=== PATIENT | female | born 1965 | race Caucasian/White ===

== ENCOUNTER 2022-08-14 13:53 | Emergency (ER) | payer OTHER ==
[~2022-08-14] VITALS: Ht 157.5 cm; Wt 57.6 kg
[~2022-08-14 13:53] MED LIST: TRAMADOL HCL-AP1 TAB PO
[2022-08-14] MEDS ORDERED: VERAPAMIL ER240 MG (14:20)
[2022-08-14] MEDS ORDERED: FOLIC ACID1 MG PO (14:20)
[2022-08-14] MEDS ORDERED: ST. JOSEPH ASPI81 M2 PO (14:20)
[2022-08-14] MEDS ORDERED: METHOTREXATE2.5 MG PO (14:21)
== END 2022-08-14 18:27 | disposition home or self-care (01) ==
LOC: ER 13:53
DX: J06.9 Acute upper respiratory infection, unspecified (principal); I10 Essential (primary) hypertension; Z20.822 Contact with and (suspected) exposure to COVID-19